=== PATIENT | male | born 1990 | race Caucasian/White ===

== ENCOUNTER 2019-01-04 11:40 | Emergency (ER) | payer OTHER ==
[~2019-01-04] VITALS: Ht 182.9 cm; Wt 115.7 kg
[2019-01-04] MEDS ORDERED: ACETAMINOPHEN-1 EAC1 PO (12:29)
[2019-01-04] MEDS ORDERED: BACTRIM DS TAB1 EACH PO (12:29)
[2019-01-04] MEDS ORDERED: KEFLEX500 M1 PO (12:29)
[2019-01-04 12:40] VITALS: BP 153/89
== END 2019-01-04 12:41 | disposition home or self-care (01) ==
LOC: M.ERS 11:40
DX: L05.01 Pilonidal cyst with abscess (principal); J45.909 Unspecified asthma, uncomplicated

== ENCOUNTER 2021-05-29 13:41 | Emergency (ER) | payer OTHER ==
[~2021-05-29] VITALS: Ht 182.9 cm; Wt 113.4 kg
[~2021-05-29 13:41] MED LIST: ACETAMINOPHEN-1 EAC1 PO; BACTRIM DS TAB1 EACH PO; KEFLEX500 M1 PO
[2021-05-29] MEDS ORDERED: BUPROPION HCL100 MG PO (13:56)
[2021-05-29] MEDS ORDERED: ADDERALL 20 MG20 M1 PO (13:57)
[2021-05-29 15:14] VITALS: BP 116/109
== END 2021-05-29 15:15 | disposition left against medical advice (07) ==
LOC: M.ERS 13:41
DX: R22.2 Localized swelling, mass and lump, trunk (principal); Z53.21 Procedure and treatment not carried out due to patient leaving prior to being seen by health care provider

== ENCOUNTER 2021-07-12 13:18 | Emergency (ER) | payer OTHER ==
[~2021-07-12] VITALS: Ht 182.9 cm; Wt 115.7 kg
[~2021-07-12 13:18] MED LIST changes: +ADDERALL 20 MG20 M1 PO; +BUPROPION HCL100 MG PO
[2021-07-12 14:23] LABS: ABSOLUTE BASOPHILS 0.1 thou/uL (0.0-0.2); ABSOLUTE EOSINOPHILS 0.2 thou/uL (0.0-0.7); ABSOLUTE LYMPHOCYTES 1.7 thou/uL (0.8-5.3); ABSOLUTE MONOCYTES 0.7 thou/uL (0.0-1.2); ABSOLUTE NEUTROPHILS 4.6 thou/uL (1.6-8.1); EOSINOPHILS 3.4 %; HEMATOCRIT 45.8 % (42.0-52.0); HEMOGLOBIN 15.4 gm/dL (14.0-18.0); LYMPHOCYTES 23.2 %; MCH 29.2 pg (26.0-34.0); MCHC 33.6 g/dL (28.0-37.0); MCV 86.9 fL (80.0-100.0); MONOCYTES 9.8 %; MPV 8.8 fl. (7.2-11.1); NUCLEATED RBCS 0 /100WBC; PLATELET COUNT* 349 thou/uL (150-400); POLYS 62.6 %; RBC 5.27 mil/uL (4.50-6.00); RDW-CV 13.3 % (10.5-14.5); WBC 7.3 thou/uL (4.0-11.0)
[2021-07-12 14:41] LABS: CALCIUM 8.8 mg/dL (8.5-10.1); CREATININE 1.1 mg/dL (0.6-1.3); POTASSIUM 3.4 mmol/L (3.5-5.1)
[2021-07-12 14:52] LABS: ALBUMIN 4.2 g/dL (3.4-5.0); TOTAL BILIRUBIN 0.4 mg/dL (<0.1-1.0); TOTAL PROTEIN 8.1 g/dL (6.4-8.2)
[2021-07-12 16:05] VITALS: BP 139/85
--- NOTE | 2021-07-13 11:20 | EKG ---
[place] [address] ELECTROCARDIOGRAM REPORT Name: MAXIM HICKS Room: [facility]#: [id number] Admission: 07/12/21 Attend Phys: Discharge: 07/12/21 Date of : 89 Date of Service: 07/12/21 1338 Report #: [id number] THIS REPORT FOR: //name// [facility] ED Test Date: 2021-07-12 Test Time: 13:38:08 Pat Name: MAXIM HICKS Department: Room: Gender: [employer]elling [employer]: : 1990 Requested By: Toni Grimes Order Number: [id number] MD: Santhosh Montana Measurements Intervals [place] Rate: 98 P: 78 GA: 147 QRS: 79 QRSD: 93 T: 1 QT: 333 QTc: 426 Interpretive Statements Sinus rhythm Borderline repolarization abnormality No previous ECG available for comparison Electronically Signed On 07-13-2021 11:20:32 PHARMACY TECHNICIAN TRAINEE by Santhosh Montana [email or web address] <ELECTRONICALLY SIGNED> By: Santhosh Montana MD, [facility] 07/13/21 1120 37 Santhosh Montana MD, FACC /EPI
== END 2021-07-12 16:05 | disposition home or self-care (01) ==
LOC: M.ERS 13:18
PROVIDERS: Emergency Medicine Emergency Medical Services
DX: R00.2 Palpitations (principal); R55 Syncope and collapse; R42 Dizziness and giddiness; R20.0 Anesthesia of skin; R20.2 Paresthesia of skin; J45.909 Unspecified asthma, uncomplicated; F41.9 Anxiety disorder, unspecified; Z79.899 Other long term (current) drug therapy